=== PATIENT | female | born 1965 | race Caucasian/White ===

== ENCOUNTER 2020-01-17 10:36 | Emergency (ER) | payer OTHER ==
[2020-01-17 10:40] VITALS: RESP 18; TEMP 98.1
[2020-01-17] MEDS ORDERED: KETOROLAC 60 MG/2 ML VIAL IM STA (10:53)
[2020-01-17] MEDS ORDERED: DIPH,PERTUS(ACELL)TETVAC-LF 0.5 ML VIAL IM ONE (10:55)
--- NOTE | 2020-01-17 10:55 | ED ---
Wound/Laceration HPI - General Chief Complaint: Wound/Laceration Stated Complaint: finger injury Time Seen by Provider: 01/17/20 10:42 Source: patient Mode of arrival: ambulatory Limitations: no limitations - History of Present Illness Initial Comments: Patient is a 54-year-old female presenting to the emergency Department with complaints of injury to her left index finger. Patient states she was trying to hitch her small camper when she smashed her left index finger in between the hitch and the ball on the truck. Patient denies being on blood thinners. She does not remember her last tetanus vaccine. Bleeding is controlled at this time with a bandage. She denies any other injuries to her hand or other fingers. She is no further complaints. - Related Data Previous Rx's Medication Instructions Recorded Cephalexin [Keflex] 500 mg PO BID 5 Days #10 cap 01/17/20 Allergies Allergy/AdvReac Type Severity Reaction Status Date / Time amoxicillin [From Augmentin] Allergy Rash/Hives Verified 01/17/20 10:41 ampicillin Allergy Rash/Hives Verified 01/17/20 10:41 clavulanic acid Allergy Rash/Hives Verified 01/17/20 10:41 [From Augmentin] Sulfa (Sulfonamide Allergy Rash/Hives Verified 01/17/20 10:41 Antibiotics) Review of Systems ROS Statement: Those systems with pertinent positive or pertinent negative responses have been documented in the HPI. ROS Other: All systems not noted in ROS Statement are negative. Past Medical History Past Medical History: No Reported History Additional Past Medical History / Comment(s): Recovering drug addict, and recovering alcoholic History of Any Multi-Drug Resistant Organisms: None Reported Past Surgical History: Orthopedic Surgery Past Psychological History: No Psychological Hx Reported Smoking Status: Current every day smoker Past Alcohol Use History: None Reported Past Drug Use History: None Reported General Exam - General Exam Comments Initial Comments: GENERAL: Well-appearing, well-nourished and in no acute distress. HEAD: Atraumatic, normocephalic. EYES: Pupils equal round and reactive to light, extraocular movements intact, sclera anicteric, conjunctiva are normal. ENT: TMs normal, nares patent, oropharynx clear without exudates. Moist mucous membranes. NECK: Normal range of motion, supple without lymphadenopathy or JVD. LUNGS: Breath sounds clear to auscultation bilaterally and equal. No wheezes rales or rhonchi. HEART: Regular rate and rhythm without murmurs, rubs or gallops. ABDOMEN: Soft, nontender, normoactive bowel sounds. No guarding, no rebound. No masses appreciated. : Deferred EXTREMITIES: Patient has full range of motion of her left hand and fingers. She is neurovascular intact. No pitting or edema. No clubbing or cyanosis. NEUROLOGICAL: Normal speech, normal gait. PSYCH: Normal mood, normal affect. SKIN: Warm, Dry, normal turgor, no rashes. Patient has a crush injury to the distal end of her left index finger. There is an avulsion injury to the distal end of the finger as well as a 0.5 cm laceration. Limitations: no limitations Course Vital Signs 01/17/20 01/17/20 10:36 12:25 Temperature 98.1 F Pulse Rate 88 79 Respiratory 18 18 Rate Blood Pressure 145/83 163/76 O2 Sat by Pulse 99 98 Oximetry Procedures - Laceration Laceration #1 Consent Obtained: verbal consent Indication: laceration Site: hand (Left index finger, distal end) Size (cm): 0 (0.5cm) Description: linear Depth: simple, single layer Anesthetic Used: lidocaine 1% Anesthesia Technique: local infiltration Amount (mls): 2 Pre-repair: wound explored, irrigated extensively Type of Sutures: nylon Size of Sutures: 5-0 Number of Sutures: 2 Technique: simple, interrupted Patient Tolerated Procedure: well - Orthopedic Splinting/Casting Injury #1 Side: left Upper Extremity Injury Location: finger Upper Extremity Immobilizer: aluminum form splint Medical Decision Making - Medical Decision Making Patient is a 54-year-old female here for a crush injury of her left index finger, distal end. X-rays reveal a compound, comminuted fracture of the tuft of the distal phalanx of the left index finger. There is an open wound and 0.5 cm laceration to the end of the finger. Patient was given a dose of Keflex in the ER. Wound was cleaned and 2 sutures were placed to approximate the ends of the wound. Patient was placed in a bandage and splint and will follow up with orthopedic hand specialist in her hometown of [facility]. Patient's and his vaccine was also updated today. Patient was sent home with a starter pack of tramadol as well as continued with antibiotics. She is in agreement with this plan of care. She is stable for discharge. Case discussed with Dr. Mcgrath. Disposition Clinical Impression: Fracture of distal phalanx of left index finger, Laceration of left index finger Disposition: HOME SELF-CARE Condition: Stable Instructions (If sedation given, give patient instructions): Finger Fracture (ED) Additional Instructions: Please return to the Emergency Department if symptoms worsen or any other concerns. Take antibiotics as prescribed. Follow-up with orthopedic hand specialist as discussed. Prescriptions: Cephalexin [Keflex] 500 mg PO BID 5 Days #10 cap Is patient prescribed a controlled substance at d/c from ED?: No Referrals: Nonstaff,Physician [Primary Care Provider] - 1-2 days
[2020-01-17] MEDS ORDERED: CEPHALEXIN 500 MG CAP PO STA (11:25)
--- NOTE | 2020-01-17 11:26 | XR ---
EXAMINATION TYPE: XR finger LT , 3 VIEWS DATE OF EXAM ORDERED: 01/17/2020 HISTORY: smashed index finger. COMPARISON: None. FINDINGS: There is a compound comminuted fractures of the tuft of the distal phalanx of the left ind ex finger. The findings are mildly displaced. IMPRESSION: COMPOUND, COMMINUTED FRACTURE OF THE TUFT OF THE DISTAL PHALANX OF THE LEFT INDEX FINGER. CODE B: INITIAL ENCOUNTER FOR OPEN FRACTURE TYPE ONE OR 2.
[2020-01-17] MEDS ORDERED: LIDOCAINE 1% INJ 10MG/ML (20 ML MDV) SQ ONE (11:49)
[2020-01-17] MEDS ORDERED: traMADol 50 MG STARTER PACK 3 TAB BTL PO STA (12:07)
[2020-01-17 12:37] VITALS: BP 163/76; PULSE 79
== END 2020-01-17 12:36 | disposition home or self-care (01) ==
LOC: EC 10:36
DX: S62.631B Displaced fracture of distal phalanx of left index finger, initial encounter for open fracture (principal); Z23 Encounter for immunization; F17.200 Nicotine dependence, unspecified, uncomplicated; F10.21 Alcohol dependence, in remission; Z88.1 Allergy status to other antibiotic agents; Z88.0 Allergy status to penicillin; Z88.2 Allergy status to sulfonamides; W23.0XXA Caught, crushed, jammed, or pinched between moving objects, initial encounter; Y93.89 Activity, other specified
CPT/HCPCS: 73140; 90715; 99283; 90471; 96372; 12001; J2001; J1885